=== PATIENT | male | born 1985 | race Caucasian/White ===

== ENCOUNTER 2021-09-02 23:14 | Emergency (ER) | payer BC, SELFPAY ==
--- NOTE | 2021-09-02 23:15 | ECG_ITS ---
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 Measurements Intervals [place] Rate: 51 P: 53 NM: 144 QRS: 53 QRSD: 98 T: 34 QT: 405 QTc: 376 Interpretive Statements SINUS BRADYCARDIA No previous ECG available for comparison Electronically Signed On 09-03-2021 22:00:12 SANDFILL OPERATOR by Lor Ruelas M.D. [id number]
--- NOTE | 2021-09-02 23:15 | XRR_ITS ---
PROCEDURE INFORMATION: Exam: XR Chest Exam date and time: 09/02/2021 11:15 PM Age: 36 years old Clinical indication: Pain; Left-sided; Additional info: Cp TECHNIQUE: Imaging protocol: XR of the chest. Views: 1 view. COMPARISON: CT Chest/Abdomen/Pelvis w IV* 06/11/2021 11:00 PM FINDINGS: Lungs: Unremarkable. No consolidation. Pleural spaces: Unremarkable. No pleural effusion. No pneumothorax. Heart/Mediastinum: Unremarkable. No cardiomegaly. Bones/joints: Unremarkable. XR/XR chest 1V portable [id number] IMPRESSION: No acute findings. Radiation Dose CTDIVOL = (mGy): DLP = (mGy-cm)
[2021-09-02 23:26] VITALS: BP 160/105; PULSE 57; RESP 16; TEMP 36.2; O2SAT 99
[2021-09-02 23:52] LABS: Basophils % 0.4 %; Eosinophils # 0.2 10^3/uL (0.0-0.8); Eosinophils % 2.7 %; Hematocrit 42.6 % (42.0-52.0); Hemoglobin 15.2 g/dL (11.7-16.6); Lymphocytes # 2.2 10^3/uL (0.8-4.8); Lymphocytes % 29.3 %; Mean Corpuscular HGB Conc 35.7 g/dL (30.0-36.0); Mean Corpuscular Hemoglobin 30.6 pg (28.0-34.0); Mean Corpuscular Volume 85.7 fl (80-94); Mean Platelet Volume 9.8 fL (7.4-10.4); Monocytes # 0.4 10^3/uL (0.2-0.9); Monocytes % 5.7 %; Neutrophils # 4.57 10^3/uL (1.8-7.7); Neutrophils % 61.6 %; Nucleated Red Blood Cells % 0 %; Platelet Count 293 10^3/cmm (130-400); Red Blood Count 4.97 10^6/uL (4.1-5.3); Red Cell Distribution Width 12.4 % (12.1-15.1); White Blood Count 7.4 10^3/uL (4.0-10.0)
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
[2021-09-03 00:12] LABS: Albumin Level 4.3 g/dL (3.5-5.2); Alkaline Phosphatase 64 IU/L (40-130); Blood Urea Nitrogen 16 mg/dL (6-20); Calcium 8.9 mg/dL (8.5-10.5); Carbon Dioxide 22 mmol/L (22-29); Chloride 103 mmol/L (98-107); Creatinine Clr Calc Pharmacy 144.6126; Globulin 2.2 g/dL (1.3-4.6); Glomerular Filtration Rate 95.5 mL/min (90-130); Glucose 104 mg/dL (65-115); Osmolality Calculated 287 mOsm/kg (285-295); Sodium 138 mmol/L (136-145); Total Bilirubin 0.2 mg/dL (0.15-1.2); Total Protein 6.5 g/dL (6.6-8.7)
[2021-09-03 00:14] LABS: Troponin(5th) Baseline 9 ng/L (0-15)
[2021-09-03 00:15] LABS: Anion Gap 16.9 (5-19); Potassium 3.9 mmol/L (3.5-5.1)
[2021-09-03 00:22] LABS: D Dimer 0.35 ug/mIFEU (0-0.59)
[2021-09-03 00:23] LABS: Alanine Aminotransferase < 5 U/L (0-41); Aspartate Amino Transferase 5 U/L (0-40)
[2021-09-03] MEDS: LORazepam 1 mg Tablet PO (01:10)
[2021-09-03 01:15] VITALS: BP 148/86; PULSE 48; RESP 18; O2SAT 99
--- NOTE | 2021-09-05 13:29 | DCPLANNER ---
order manager had message to schedule a follow up appointment for patient with [facility]. order manager called the [facility], spoke with Padmini, gave clinic patients information. A follow up appointment was scheduled for Monday, September 20, 2021 at 1:[address] Corrales. order manager called patient and gave patient the appointment information.
--- NOTE | 2021-10-07 11:05 | DCPLANNER ---
Patient had a follow up appointment scheduled for 09.20.21 with heart care - patient did attend appointment.
== END 2021-09-03 01:17 | disposition home or self-care (01) ==
PROVIDERS: Emergency Medicine; Emergency Provider Nurse Practitioner Family
DX: R07.89 Other chest pain (principal)
CPT/HCPCS: 71045; 80053; 84484; 85025; 85378; 93005; 99283

== ENCOUNTER 2021-09-13 19:32 | Emergency (ER) | payer BC, SELFPAY ==
[2021-09-13 19:40] VITALS: BP 154/94; PULSE 68; RESP 18; TEMP 36.6; O2SAT 97; BMI 33.9
--- NOTE | 2021-09-13 19:48 | ECG_ITS ---
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 Measurements Intervals [place] Rate: 54 P: 41 MT: 162 QRS: 42 QRSD: 98 T: 34 QT: 411 QTc: 391 Interpretive Statements SINUS BRADYCARDIA WITH SINUS ARRHYTHMIA Compared to ECG 09/02/2021 23:25:42 No significant changes Electronically Signed On 09-14-2021 9:59:12 HAND STEMMER by Christi Carver M.D. [id number]
--- NOTE | 2021-09-13 19:48 | XRR_ITS ---
PROCEDURE INFORMATION: Exam: XR Chest Exam date and time: 09/13/2021 7:48 PM Age: 36 years old Clinical indication: Pain; Left-sided; Additional info: Cp TECHNIQUE: Imaging protocol: XR of the chest. Views: 1 view. COMPARISON: CR (CHEST, ) 09/02/2021 11:48 PM FINDINGS: Lungs: Lungs are clear bilaterally. Stable calcified granuloma in the the left lower lobe. Pleural spaces: No pleural effusion. No pneumothorax. Heart/Mediastinum: Stable mild enlargement of the cardiac silhouette. Mediastinal contours are unremarkable. Bones/joints: Stable changes consistent with a previous right rotator cuff repair. Stable degenerative changes in the spine. XR/XR chest 1V portable [id number] IMPRESSION: 1. No acute cardiopulmonary process. 2. Stable calcified granuloma in the the left lower lobe. 3. Incidental/nonacute findings are listed in the report. Radiation Dose CTDIVOL = (mGy): DLP = (mGy-cm)
[2021-09-13 20:10] LABS: Basophils % 0.6 %; Eosinophils # 0.2 10^3/uL (0.0-0.8); Eosinophils % 2.2 %; Hemoglobin 14.7 g/dL (11.7-16.6); Lymphocytes # 2.2 10^3/uL (0.8-4.8); Lymphocytes % 32.8 %; Mean Corpuscular HGB Conc 34.2 g/dL (30.0-36.0); Mean Corpuscular Hemoglobin 29.8 pg (28.0-34.0); Mean Corpuscular Volume 87.2 fl (80-94); Mean Platelet Volume 10.2 fL (7.4-10.4); Monocytes # 0.4 10^3/uL (0.2-0.9); Monocytes % 5.2 %; Neutrophils # 3.94 10^3/uL (1.8-7.7); Neutrophils % 59.1 %; Nucleated Red Blood Cells % 0 %; Platelet Count 282 10^3/cmm (130-400); Red Blood Count 4.93 10^6/uL (4.1-5.3); Red Cell Distribution Width 12.7 % (12.1-15.1); White Blood Count 6.7 10^3/uL (4.0-10.0)
[2021-09-13 20:37] LABS: Alanine Aminotransferase 26 U/L (0-41); Albumin Level 4.5 g/dL (3.5-5.2); Alkaline Phosphatase 64 IU/L (40-130); Aspartate Amino Transferase 23 U/L (0-40); Blood Urea Nitrogen 13 mg/dL (6-20); Calcium 8.7 mg/dL (8.5-10.5); Carbon Dioxide 27 mmol/L (22-29); Chloride 104 mmol/L (98-107); Globulin 1.9 g/dL (1.3-4.6); Glomerular Filtration Rate 109.4 mL/min (90-130); Glucose 90 mg/dL (65-115); Lipase 32 U/L (13-60); Osmolality Calculated 290 mOsm/kg (285-295); Sodium 140 mmol/L (136-145); Total Bilirubin 0.2 mg/dL (0.15-1.2); Total Protein 6.4 g/dL (6.6-8.7)
[2021-09-13 20:38] LABS: Troponin(5th) Baseline 10 ng/L (0-15)
--- NOTE | 2021-09-13 21:33 | W.ED.GENADLT ---
HPI - General Adult General: Chief complaint: Chest Pain Stated complaint: Chest Pains Time Seen by Provider: 09/13/21 20:16 History of Present Illness: HPI narrative: CC: Chest Pain HPI: This is a [36] yo patient hx of family hx of cardiac issue presenting to the ED complaining of acute sudden onset intermittent sharp chest pain since 09/02 WITHOUT radiation to the back or shoulders. Patient tells me that the pain has now worsened to the point where he has sharp stabbing pain with breath. Patient has a recent URI 3 weeks ago. No associated with shortness of breath, chest pain or dyspnea on exertion. Pain is not tearing in nature and does not radiate to the back. Pain not associated with vomiting or PO intake. Denies any recent sympathomimetic drug use. Patient denies any cough. Denies palpitations, dysphagia, diaphoresis, radiation of pain to bilateral arms, jaw. Denies F/N/V/D. Patient denies any recent immobility, surgery, unilateral leg swelling, or prior PE. Patient denies any orthopnea. No family history of Marfan syndrome, or Shirlene-Danlos syndrome, or any type of aortic pathologies. Onset: 11 days ago Duration: ongoing for the last 11 days Location: home Severity: mild/moderate Review of Systems Narrative: Constitutional: No fever, no chills. HEENT: No vision changes, no sore throat. CV: +chest pain, no palpitations. PULM: No cough, No dyspnea. GI: No abdominal pain, no N/V/D. : No dysuria, no frequency, no hematuria. MSKEL: No arthralgias, no edema. SKIN: No new rashes, no lesions. NEURO: No headache, no focal weakness. HEME: No easy bleeding or bruising. PSYCH: No change in mood or affect. Physical Exam Narrative: EXAM NARRATIVE: Head: Atraumatic, normocephalic Eyes: PERRL, EOMI, conjunctiva without injection ENT: Throat without erythema, lesions or exudate, MMM NECK: Supple, trachea midline, no JVD LUNGS: LCTA CV: RRR, S1,S2, no murmurs, rubs, gallops. 2+ peripheral pulses in UEs ABDOMEN: Soft, nontender, nondistended, BS x4, no rigidity, no guarding, no rebound EXTREMITY: Normal ROM, no pitting edema, no calf tenderness to palpation SKIN: No rash or erythema NEURO: Awake and alert. No focal motor deficits. PSYCH: Normal mood and affect. Course Vital Signs: Vital signs: Vital Signs Temperature 97.8 F 09/13/21 19:40 Pulse Rate 68 09/13/21 19:40 Respiratory Rate 18 09/13/21 19:40 Blood Pressure 154/94 09/13/21 19:40 Pulse Oximetry 97 09/13/21 19:40 MDM - General Adult MDM Narrative: Medical decision making narrative: [36]yo patient w/ hx of family hx of cardiac issues presenting to the ED with evaluation of sharp chest pain x 11 days now worsening. HDS, pulse 2+ radially bilaterally, no signs of fluid overload, AAOx3, neuro exam intact. Given History and Exam today I have no suspicion for ACS, Pneumothorax, Pneumonia, Pulmonary Embolus, Tamponade, Aortic Dissection or other emergent problems as a cause for this presentation. Workup: ECG, CXR, CBC, BMP, Troponin x 2 Interventions: Toradol, tylenol Findings: ECG: No overt evidence of STEMI, hyperacute T waves, localizable STD or T wave inversions. No evidence of Brugada?s sign, delta wave, epsilon wave, significantly prolonged QTc, or malignant arrhythmia. No Q waves. Other Labs unremarkable for emergent problems. CXR: Without PTX, PNA, or widened mediastinum Last Stress Test: never Last Heart Catheterization: never HEART Score: 1 Dimer wnl [10:20pm] On reassessment, the patient is HDS, no complaints of persistent chest pain in the ED after evaluation. ECG is non-ischemic. Workup today is unremarkable. Doubt ACS/PE or other emergent causes of chest pain. Social did not show any signs of any acute right heart strain, or for dissection flap. No signs of pericardial effusion. Patient has an appointment with Cardiology next week and plans to follow up appropriately. Doubt ACS/PE or other emergent causes of chest pain. No suspicion for aortic dissection given no widened mediastinum, 2+ upper extremity pulses, or tearing pain. No suspicion for PE given no pleuritic chest pain, recent immobilization or surgery hemoptysis, or other VTE risk factors. EKG is non-ischemic. XR normal. Rx: Tylenol 500mg Q6Hrs x 4 days PRN pain Disposition: Discharge. Strict return precautions discussed with the patient with full understanding. Advised patient to follow up promptly with a primary care provider in 24-48 hrs if the patient has persistent symptoms. Given return instructions for any crushing/tearing chest pain, focal weakness, syncope or any new or concerning issues. Lab Data: Labs: Lab Results 09/13/21 09/13/21 09/13/21 20:03 20:03 20:03 WBC 6.7 10^3/uL 10^3/ uL (4.0-10.0) RBC 4.93 10^6/uL 10^6 /uL (4.1-5.3) Hgb 14.7 g/dL g/dL (11.7-16.6) Hct 43.0 % % (42.0-52.0) MCV 87.2 fl fl (80-94) MCH 29.8 pg pg (28.0-34.0) MCHC 34.2 g/dL g/dL (30.0-36.0) RDW 12.7 % % (12.1-15.1) Plt Count 282 10^3/cmm 10^3 /cmm (130-400) MPV 10.2 fL fL (7.4-10.4) Neut % (Auto) 59.1 % % Lymph % (Auto) 32.8 % % [place] % (Auto) 5.2 % % Eos % (Auto) 2.2 % % Baso % (Auto) 0.6 % % Neut # (Auto) 3.94 10^3/uL 10^3 /uL (1.8-7.7) Lymph # (Auto) 2.2 10^3/uL 10^3/ uL (0.8-4.8) [place] # (Auto) 0.4 10^3/uL 10^3/ uL (0.2-0.9) Eos # (Auto) 0.2 10^3/uL 10^3/ uL (0.0-0.8) Baso # (Auto) 0.0 10^3/uL 10^3/ uL (0.0-0.1) Nucleated RBC % (a uto) 0 % % Nucleated RBCs # 0.0 /100WBC /100W BC D-Dimer Sodium 140 mmol/L mmol/L (136-145) Potassium 4.0 mmol/L mmol/L (3.5-5.1) Chloride 104 mmol/L mmol/L (98-107) Carbon Dioxide 27 mmol/L mmol/L (22-29) Anion Gap 13.0 (5-19) BUN 13 mg/dL mg/dL (6-20) Creatinine 0.8 mg/dL mg/dL (0.7-1.2) GFR Calculation 109.4 mL/min mL/m in (90-130) Glucose 90 mg/dL mg/dL (65-115) Calculated Osmolal ity 290 mOsm/kg mOsm/ kg (285-295) Calcium 8.7 mg/dL mg/dL (8.5-10.5) Total Bilirubin 0.2 mg/dL mg/dL (0.15-1.2) AST 23 U/L U/L (0-40) ALT 26 U/L U/L (0-41) Alkaline Phosphata se 64 IU/L IU/L (40-130) Troponin T Baselin e 10 ng/L ng/L (0-15) Troponin T 120 Min ch[place]kat Delta Troponin T Total Protein 6.4 g/dL L g/dL (6.6-8.7) Albumin 4.5 g/dL g/dL (3.5-5.2) Globulin 1.9 g/dL g/dL (1.3-4.6) Lipase 32 U/L U/L (13-60) 09/13/21 09/13/21 22:00 22:08 WBC RBC Hgb Hct MCV MCH MCHC RDW Plt Count MPV Neut % (Auto) Lymph % (Auto) [place] % (Auto) Eos % (Auto) Baso % (Auto) Neut # (Auto) Lymph # (Auto) [place] # (Auto) Eos # (Auto) Baso # (Auto) Nucleated RBC % (a uto) Nucleated RBCs # D-Dimer <= 0.27 ug/mIFEU ug/mIFEU (0-0.59) Sodium Potassium Chloride Carbon Dioxide Anion Gap BUN Creatinine GFR Calculation Glucose Calculated Osmolal ity Calcium Total Bilirubin AST ALT Alkaline Phosphata se Troponin T Baselin e Troponin T 120 Min [place] 9.14 ng/L ng/L (0-15) Delta Troponin T -0.86 ABS# L ABS# (0-10) Total Protein Albumin Globulin Lipase Imaging Data^: Other Imaging: Radiologist's impression: [facility] [place], [place] [address]HLme ReportSigned Patient: Jerry Griffin #: [id number]: 1985Acct#:[id number]/Sex: 36 / MADM Date: 09/13/21Loc: ERRoom/Bed:Attending Dr: Ordering Provider/Ordering MD: Rell Smith MD Date of Service: 09/13/21 Procedure(s): XR chest 1V portable [id number] Accession Number(s): [id number] Report Number: [id number] PROCEDURE INFORMATION: Exam: XR Chest Exam date and time: 09/13/2021 7:48 PM Age: 36 years old Clinical indication: Pain; Left-sided; Additional info: Cp TECHNIQUE: Imaging protocol: XR of the chest. Views: 1 view. COMPARISON: CR (CHEST, ) 09/02/2021 11:48 PM FINDINGS: Lungs: Lungs are clear bilaterally. Stable calcified granuloma in the the left lower lobe. Pleural spaces: No pleural effusion. No pneumothorax. Heart/Mediastinum: Stable mild enlargement of the cardiac silhouette. Mediastinal contours are unremarkable. Bones/joints: Stable changes consistent with a previous right rotator cuff repair. Stable degenerative changes in the spine. XR/XR chest 1V portable [id number] IMPRESSION: 1. No acute cardiopulmonary process. 2. Stable calcified granuloma in the the left lower lobe. 3. Incidental/nonacute findings are listed in the report. Radiation Dose CTDIVOL = (mGy): DLP = (mGy-cm) Dictated By:Mimi Alonso MDSigned By:Mimi Alonso MDSigned Date/Time:09/13/21D/ 47 Discharge Plan Discharge Patient Disposition: Home Clinical Impression: Chest pain Condition: Stable Prescriptions: New acetaminophen 500 mg tablet 500 mg PO Q6H PRN (Reason: pain) 5 Days Qty: 20 RF: 0 orphenadrine citrate 100 mg tablet extended release 100 mg PO BID PRN (Reason: pain) 10 Days Qty: 20 RF: 0 Biofreeze (menthol) 5 % gel 1 ea topical BID PRN (Reason: pain) 10 Days Qty: 1 RF: 0 No Action lorazepam 0.5 mg tablet 0.5 mg PO DAILY PRN (Reason: anxiety) Qty: 7 RF: 0 Discharge Orders: Discharge ED (Routine); Ordered 09/13/21 Ordered By: Chaitanya Dennis Discharge Diet: Advance as tolerated Discharge Activity: Resume usual activity Patient Instructions: Chest Pain (ED) Activity Restrictions/Additional Instructions: Come back to the emergency room if your chest pain worsens, have any fever or chills, worsening shortness of breath, worsening exertional lightheadedness, or any new or concerning complaints. Follow-up with our house mover helper next week for further evaluation chest pain as you have a family history of cardiac issues. Come back to the emergency room you have any new or concerning complaints. Coding Level of Care Code ED Environment Coordinator for Miriam Richard
[2021-09-13] MEDS: ketorolac 30 mg/mL INJ IVP (21:48)
[2021-09-13] MEDS: acetaminophen 500 mg Tablet 1000 MG PO (21:49)
[2021-09-13 22:28] LABS: D Dimer <= 0.27 ug/mIFEU (0-0.59)
[2021-09-13 22:44] LABS: Troponin 5 2HR 9.14 ng/L (0-15)
[2021-09-13 22:46] LABS: Troponin 5 2HR Delta -0.86 ABS# (0-10)
[2021-09-13 22:59] VITALS: BP 137/84; PULSE 58; RESP 16; O2SAT 98
== END 2021-09-13 23:00 | disposition home or self-care (01) ==
PROVIDERS: Emergency Medicine; Emergency Provider Emergency Medicine
DX: R07.9 Chest pain, unspecified (principal)
CPT/HCPCS: 71045; 80053; 83690; 84484; 85025; 85378; 93005; 96374; 99283; J1885

== ENCOUNTER 2021-09-23 07:29 | Outpatient (CLI) | payer BC, SELFPAY ==
--- NOTE | 2021-09-23 07:59 | USCV_ITS ---
Luis Daniel Griffin Age: 36 Gender: M : 1985 Exam Date: 09/23/2021 08:00 Ordering Phys: Lizandro Evans M.D ([email or web address]) Technologist: RANDELL [place] [facility] [place]: Chest pains x 2-3 weeks. No hx cardiac intervention. BP: / HR: 53 Rhythm: Sinus Technical Quality: Adequate MEASUREMENTS (Male / Female) Normal Values FINDINGS Left Ventricle Normal left ventricular size. LV systolic function is normal with EF of 55-60%. No regional wall motion abnormalities. Normal diastolic filling pattern. Right Ventricle The right ventricle is normal in size and function. Right Atrium The right atrium is normal in size. Left Atrium The left atrium is normal in size. Mitral Valve Structurally normal mitral valve without significant stenosis or prolapse. There is trace mitral regurgitation. Aortic Valve Thickened aortic valve without significant stenosis. There is no aortic regurgitation. Tricuspid Valve Structurally normal tricuspid valve without significant stenosis. Trace tricuspid regurgitation. Insufficient TR jet to calculate RVSP Pulmonic Valve Structurally normal pulmonic valve without significant stenosis. There is no pulmonic regurgitation. Pericardium Normal pericardium without effusion. Aorta Mildly dilated ascending aorta CONCLUSIONS Normal LV systolic function with EF of 55 to 60%. Normal diastolic function. Trace mitral regurgitation. Thickened aortic valve. Trace tricuspid regurgitation. Mildly dilated ascending aorta. No comparison studies are available. Lizandro Evans MD (Electronically Signed) Final Date: 26 September 2021 14:42 S
--- NOTE | 2021-09-23 08:00 | ECG_ITS ---
[facility] Test Date: 2021-09-23 Pat Name: Luis Daniel Griffin Department: Room: Gender: Male Senior Pricing Analyst: Emelia Mix : 1985 Requested By: Lizandro Evans Order Number: [id number] Des MD: Lizandro Evans M.D. Interpretive Statements NAME OF STUDY: EXERCISE SESTAMIBI STRESS TEST INDICATION: [Chest Pain, ] EXERCISE DATA: The patient was exercised by Ez protocol. Baseline heart rate was 59 beats per minute. Baseline blood pressure was 130/78 millimeters of mercury. Target heart rate was 156 beats per minute. Maximum heart rate achieved was 161, which was 103% of the target heart rate. Maximum blood pressure was 158/78 millimeters of mercury. Total exercise time was 10 minutes 13 seconds. Maximum METs achieved was 13.5, maximum VO2 was 47.3. The reason for ending the test was completion of protocol. The patient complained of shortness of breath during the stress test, which then resolved at the end of the test. ELECTROCARDIOGRAM: BASELINE: Showed sinus rhythm, normal axis, no significant ST-T changes at the baseline noted. [] EXERCISE: At the peak exercise level, [] nonspecific ST-T wave changes. Occasional PVCs [] RECOVERY: During the recovery period, heart rate dropped appropriately. No significant ST-T changes in the recovery suggestive of ischemia noted. [] CONCLUSION: 1. Exercise capacity excellent. 2. Heart rate response was appropriate 3. Blood pressure response was appropriate 4. Symptoms not suggestive of ischemia. 5. Electrocardiogram portion of the stress test was not suggestive of ischemia. 6. Nuclear scan will be documented separately. Electronically Signed On 10-08-2021 13:03:40 MANAGER BRIDGE by Lizandro Evans M.D. [id number]
--- NOTE | 2021-09-23 08:00 | NMCV_ITS ---
NM janelle perf SPECT r/s* [id number] Luis Daniel Grfifin Age: 36 Gender: M : 1985 Exam Date: 09/23/2021 08:42 Ordering Phys: Lizandro Evans M.D ([email or web address]) Technologist: ZEYNEP Braden Exam Location: [facility] Indications: CHEST PAIN STRESS TEST Please see separate stress test report in [facility] for full findings IMAGE PROTOCOL Rest/Stress 1 Exercise Day Radiopharmaceutical Dose (mCi) Administration Site Administered by Rest: Tc-99m 10.6 IV ZEYNEP Marino Sestamibi Stress:Tc-99m 32.5 IV ZEYNEP Marino Sestaminika Rest: 23-Sep-2021 60 Discovery 630 Stress: 23-Sep-2021 15 Discovery 630 Radiopharmaceutical was injected at 86 % maximum heart rate. Images obtained in supine and prone position. SPECT RESULTS Technical Quality: Excellent Raw Data Analysis: Normal Image Corrections: No attenuation or motion correction applied Summed Stress Score: 0 Summed Rest Score: 0 Summed Difference Score: 0 PERFUSION FINDINGS There is homogenous radiotracer uptake throughout the myocardium. No evidence of ischemia FUNCTIONAL RESULTS (calculated via Gated SPECT) Stress Image LV EF (%): 64 Stress EDV (mL):151 TID: 0.76 Stress ESV (mL):54 FUNCTIONAL FINDINGS: There is normal left ventricular systolic function. IMPRESSIONS 1. Normal myocardial perfusion imaging with no evidence of ischemia 2. LV systolic function is normal Lizandro Evans MD (Electronically Signed) Final Date: 23 September 2021 15:49 S
[2021-09-23 08:29] VITALS: BMI 31.8
[2021-09-23 09:40] VITALS: BP 134/87; PULSE 89
== END 2021-09-23 07:30 | disposition home or self-care (01) ==
LOC: RAD 07:30 → CDL 07:57
PROVIDERS: Visit Provider Internal Medicine
DX: R07.9 Chest pain, unspecified (principal); R06.02 Shortness of breath; I08.3 Combined rheumatic disorders of mitral, aortic and tricuspid valves
CPT/HCPCS: 78452; 93017; 93306; A9500

== ENCOUNTER 2021-11-02 12:00 | Outpatient (CLI) | payer BC, SELFPAY | END 2021-11-02 12:01 | disposition home or self-care (01) | LOC: SLEEP 11-03 12:35 | PROVIDERS: Visit Provider Physician Assistant | DX: G47.10 Hypersomnia, unspecified (principal) | CPT/HCPCS: G0399 ==

== ENCOUNTER 2023-08-26 19:15 | Emergency (ER) | payer BC, SELFPAY ==
[2023-08-26 19:18] VITALS: BP 160/116; PULSE 58; RESP 17; TEMP 36.6; O2SAT 99; BMI 33.9
[2023-08-26 19:35] LABS: Basophils % 0.6 %; Eosinophils # 0.4 10^3/uL (0.0-0.8); Eosinophils % 5.9 %; Hematocrit 47.5 % (37-53); Lymphocytes # 2.3 10^3/uL (0.8-4.8); Lymphocytes % 32.2 %; Mean Corpuscular HGB Conc 34.5 g/dL (30-55); Mean Corpuscular Hemoglobin 30.4 pg (27-33); Mean Platelet Volume 9.9 fL (7.4-10.4); Monocytes # 0.3 10^3/uL (0.2-0.9); Monocytes % 4.7 %; Neutrophils # 4.08 10^3/uL (1.8-7.7); Neutrophils % 56.3 %; Nucleated Red Blood Cells % 0 %; Platelet Count 290 10^3/cmm (157-399); Red Cell Distribution Width 12.3 % (12.1-15.1); White Blood Count 7.24 10^3/uL (3.29-11.43)
--- NOTE | 2023-08-26 19:42 | W.ED.ABDPA2 ---
HPI - Abdominal Pain General: Chief Complaint: Abdominal Pain Stated Complaint: abdomen pain,n/v Time Seen by Provider: 08/26/23 19:17 Source: patient and family Mode of arrival: ambulatory Limitations: no limitations History of Present Illness: Patient is a nice 38-year-old male who presents to ED today with complaint of nausea and vomiting as well as what he describes as stomach uneasiness . Denies actual pain or cramping although significant other states he has a high pain tolerance and wouldn't admit to this. He states symptoms have been present for approximately 2 days. He states he has not been able to hold down anything as he will vomit approximately 15 to 30 minutes after eating. He has had an occasional loose stool but no diffuse diarrhea. No fevers. He has tried treatment with OTC nausea meds and Tums without relief. Used to take Famotidine but stopped this a while back. Denies NSAID/etoh use. MD elicited complaint: other (N/V) Pertinent past history: none Onset (ago): day(s) Pain Consistency: intermittent Location: Epigastric and Periumbilical Severity: mild Radiation: none Migration to: no migration Exacerbating factors: eating Relieving factors: vomiting Associated Symptoms: Reports diarrhea, nausea and vomiting; Denies chills, dysuria, fever(s), hematochezia, hematemesis and melena Review of Systems Const: Denies: fever(s), chills, body aches, fatigue or malaise Card: Denies: chest pain Resp: Denies: dyspnea GI: Reports: abdominal pain, nausea, vomiting and diarrhea; Denies: hematemesis, hematochezia or melena : Denies: flank pain, difficulty urinating, dysuria, urinary frequency, urinary urgency or urinary hesitancy Musc: Denies: neck pain, back pain, extremity pain or joint pain Skin/Breast: Denies: rash Neuro: Denies: headache(s), numbness in extremities, weakness in extremities, sensory changes or dizziness PFS ED PFSH: Family History Father Heart attack History of open heart surgery Social History Smoking and tobacco/nicotine status: never used tobacco/nicotine Alcohol intake: never Substance/Drug Use: never Physical Exam Const: COMMON NORMALS: no acute distress, average body habitus, patient oriented x3, no limitations, healthy appearing, alert and well nourished Eye: COMMON NORMALS: no scleral icterus Resp: COMMON NORMALS: normal respiratory effort and clear to auscultation bilaterally AUSCULTATION: clear to auscultation bilaterally Cardio: COMMON NORMALS: regular rate and regular rhythm RATE: regular rate RHYTHM: regular rhythm GI: COMMON NORMALS: Normal to inspection, nondistended, normoactive bowel sounds present, Soft to palpation, No hepatosplenomegaly present and no masses INSPECTION: Yes normal to inspection AUSCULTATION: Yes normoactive bowel sounds PALPATION: Yes Soft to palpation, Yes Tenderness to palpation present (GI) (generally; does not appear uncomfortable with palpation), No Guarding due to palpation present (GI), No Rigid due to palpation and Yes No hepatosplenomegaly present : COMMON NORMALS: Yes no CVA tenderness BLADDER/KIDNEY EXAM: Yes no CVA tenderness Back/Pelvis: COMMON NORMALS: no CVA tenderness, thoracic and lumbar spine normal to inspection, no thoracic nor lumbar tenderness and thoraco-lumbar ROM normal Extremity: COMMON NORMALS: normal to inspection GENERAL: Yes normal exam except as noted Neuro: NICOLLE COMA SCALE: document GCS findings Nicolle coma scale eye opening: Spontaneous [place] coma scale verbal response: Orientated [place] coma scale motor response: Obey commands Nicolle coma scale total score: 15 COMMON NORMALS: patient oriented x3, moves all extremities, no focal motor deficits and no sensory deficits noted SENSORIUM/ORIENTATION: Yes alert Skin: COMMON NORMALS: no rashes or lesions noted GENERAL SKIN EXAM: no rashes or lesions noted Course Vital Signs: Vital signs: Vital Signs Temperature 97.9 F 08/26/23 19:18 Pulse Rate 90 08/26/23 20:29 Respiratory Rate 18 08/26/23 20:29 Blood Pressure 122/73 08/26/23 20:29 Pulse Oximetry 98 08/26/23 20:29 Oxygen Delivery Me thod Room Air 08/26/23 20:19 MDM - Abdominal Pain Medical Decision Making Patient appears in no acute distress. Vital signs are stable. Blood work overall is unremarkable. He was given IV fluids, Zofran, and a GI cocktail and feels better. He was able to eat/drink here and has not had vomiting. At initial examination I had discussed not obtaining CT imaging as exam/history did not sound emergent/surgical in nature but patient/significant other requesting this. This was completed and essentially normal apart from a few incidental findings. I will give him nausea meds and place him on a PPI and have him follow up with his primary care provider. Return to ED precautions given. Lab Data 08/26/23 19:28 08/26/23 19:28 Labs/Radiology: Radiology Impressions Abdomen/Pelvis CT 08/26/23 19:59 IMPRESSION: 1. No acute findings. 2. A 6 mm fat containing umbilical hernia, which does not contain any bowel wall. 3. Mild sigmoid colon diverticulosis without diverticulitis. COMMENTS: Consistent with the [place] [employer]'s Incidental Findings Committee white paper (J Am Prabha Radiol 2018): Any incidental renal lesion less than 1 cm or classified as too small to characterize, or any incidental cystic renal lesion characterized as simple-appearing, is likely benign. No follow-up imaging is recommended for these lesions per consensus recommendations based on imaging criteria. Laboratory Results WBC 7.24 10^3/uL (3.29-11.43) 08/26/23 19:28 RBC 5.40 10^6/uL (3.85-5.65) 08/26/23 19:28 Hgb 16.40 g/dL (11.27-16.99) 08/26/23 19:28 Hct 47.5 % (37-53) 08/26/23 19:28 MCV 88.0 fl (82-101) 08/26/23 19:28 MCH 30.4 pg (27-33) 08/26/23 19:28 MCHC 34.5 g/dL (30-55) 08/26/23 19:28 RDW 12.3 % (12.1-15.1) 08/26/23 19:28 Plt Count 290 10^3/cmm (157-399) 08/26/23 19:28 MPV 9.9 fL (7.4-10.4) 08/26/23 19:28 Neut % (Auto) 56.3 % 08/26/23 19:28 Lymph % (Auto) 32.2 % 08/26/23 19:28 Johnson % (Auto) 4.7 % 08/26/23 19:28 Eos % (Auto) 5.9 % 08/26/23 19:28 Baso % (Auto) 0.6 % 08/26/23 19:28 Neut # (Auto) 4.08 10^3/uL (1.8-7.7) 08/26/23 19:28 Lymph # (Auto) 2.3 10^3/uL (0.8-4.8) 08/26/23 19:28 Johnson # (Auto) 0.3 10^3/uL (0.2-0.9) 08/26/23 19:28 Eos # (Auto) 0.4 10^3/uL (0.0-0.8) 08/26/23 19:28 Baso # (Auto) 0.0 10^3/uL (0.0-0.1) 08/26/23 19:28 Nucleated RBC % (auto) 0 % 08/26/23 19:28 Nucleated RBCs # 0.0 /100WBC 08/26/23 19:28 Sodium 140 mmol/L (136-145) 08/26/23 19:28 Potassium 3.6 mmol/L (3.5-5.1) 08/26/23 19:28 Chloride 103 mmol/L (98-107) 08/26/23 19:28 Carbon Dioxide 28 mmol/L (22-29) 08/26/23 19:28 Anion Gap 12.6 (5-19) 08/26/23 19:28 BUN 12 mg/dL (6-20) 08/26/23 19:28 Creatinine 1.1 mg/dL (0.7-1.2) 08/26/23 19:28 GFR Calculation 74.9 mL/min (90-130) L 08/26/23 19:28 Glucose 93 mg/dL (65-115) 08/26/23 19:28 Calculated Osmolality 289 mOsm/kg (285-295) 08/26/23 19:28 Calcium 8.9 mg/dL (8.5-10.5) 08/26/23 19:28 Total Bilirubin 0.7 mg/dL (0.15-1.2) 08/26/23 19:28 AST 36 U/L (0-40) 08/26/23 19:28 ALT 33 U/L (0-41) 08/26/23 19:28 Alkaline Phosphatase 59 U/L (40-130) 08/26/23 19:28 Total Protein 6.9 g/dL (6.6-8.7) 08/26/23 19:28 Albumin 4.5 g/dL (3.5-5.2) 08/26/23 19:28 Globulin 2.4 g/dL (1.3-4.6) 08/26/23 19:28 Lipase 39 U/L (13-60) 08/26/23 19:28 Urine Color Rox (Yellow) 08/26/23 19:42 Urine Appearance Clear (CLEAR) 08/26/23 19:42 Urine pH 5 (5-7) 08/26/23 19:42 Ur Specific [place] 1.025 (1.005-1.030) 08/26/23 19:42 Urine Protein Trace (Negative) 08/26/23 19:42 Urine Glucose (UA) Norm (Normal) 08/26/23 19:42 Urine Ketones 2+ (Negative) H 08/26/23 19:42 Urine Blood Trace (Negative) H 08/26/23 19:42 Urine Nitrate Negative (Negative) 08/26/23 19:42 Urine Bilirubin 1+ (Negative) H 08/26/23 19:42 Urine Urobilinogen 1 mg/dL (Negative) H 08/26/23 19:42 Ur Leukocyte Esterase Negative (Negative) 08/26/23 19:42 Urine RBC 0-4 /hpf (0-2) H 08/26/23 19:42 Urine WBC Rare /hpf (0-5) 08/26/23 19:42 Ur Squamous Epith Cells 0-4 /hpf (0-5) H 08/26/23 19:42 Amorphous Sediment 1+ /hpf 08/26/23 19:42 Urine Bacteria None /hpf (NONE) 08/26/23 19:42 Urine Mucus 3+ /hpf 08/26/23 19:42 All radiology interpretation(s) finalized by discharge Discharge Plan Discharge Patient Disposition: Home Clinical Impression: Nausea and vomiting Qualifiers: Vomiting type: unspecified Qualified Code(s): R11.2 - Nausea with vomiting, unspecified Condition: Stable Prescriptions: New ondansetron 4 mg tablet,disintegrating 4 mg PO Q8H PRN (Reason: nausea and vomiting) Qty: 14 0RF Protonix 40 mg tablet,delayed release (DR/EC) 40 mg PO DAILY 28 Days Qty: 28 0RF No Action lorazepam 0.5 mg tablet 0.5 mg PO DAILY PRN (Reason: anxiety) Qty: 7 0RF Discharge Orders: Discharge ED (Routine); Ordered 08/26/23 Ordered By: Camilla Barba Referrals: Zohreh Gustafson PA [Primary Care Provider] - Activity Restrictions/Additional Instructions: As we discussed your vitals and labs are all reassuring. CT scan is essentially normal. As we discussed I will trial you on medication and want you to follow up with your primary care provider if symptoms persist. Coding Level of Care Code ED Home Lending Officer for Miriam Richard
[2023-08-26 19:47] VITALS: BP 145/106; PULSE 53; RESP 18; O2SAT 97
[2023-08-26 19:49] LABS: Alanine Aminotransferase 33 U/L (0-41); Albumin Level 4.5 g/dL (3.5-5.2); Alkaline Phosphatase 59 U/L (40-130); Anion Gap 12.6 (5-19); Aspartate Amino Transferase 36 U/L (0-40); Blood Urea Nitrogen 12 mg/dL (6-20); Calcium 8.9 mg/dL (8.5-10.5); Carbon Dioxide 28 mmol/L (22-29); Chloride 103 mmol/L (98-107); Globulin 2.4 g/dL (1.3-4.6); Glomerular Filtration Rate 74.9 mL/min (90-130); Glucose 93 mg/dL (65-115); Lipase 39 U/L (13-60); Osmolality Calculated 289 mOsm/kg (285-295); Potassium 3.6 mmol/L (3.5-5.1); Sodium 140 mmol/L (136-145); Total Bilirubin 0.7 mg/dL (0.15-1.2); Total Protein 6.9 g/dL (6.6-8.7)
[2023-08-26 19:55] LABS: Add Urine Microscopic? YES; Bilirubin Urine 1+ (Negative); Blood Urine Trace (Negative); Glucose Urine UA Norm (Normal); Ketones Urine 2+ (Negative); Leukocyte Esterase Urine Negative (Negative); Nitrate Urine Negative (Negative); Protein Urine Trace (Negative); RBC Urine 0-4 /hpf (0-2); Specific Gravity, Urine 1.025 (1.005-1.030); Squamous Epithelial Cell Urine 0-4 /hpf (0-5); Urine Appearance Clear (CLEAR); Urine Color Amber (Yellow); Urobilinogen Urine 1 mg/dL (Negative); WBC Urine RARE /hpf (0-5); pH Urine 5 (5-7)
[2023-08-26 19:56] LABS: Add Urine Culture? No; Amorphous Sediment Urine 1+ /hpf; Mucus Urine 3+ /hpf
--- NOTE | 2023-08-26 19:59 | CTR_ITS ---
PROCEDURE INFORMATION: Exam: CT Abdomen And Pelvis With Contrast Exam date and time: 08/26/2023 8:10 PM Age: 38 years old Clinical indication: Nausea and vomiting; Abdominal pain; Generalized; Patient HX: Diffuse abd pain with n/v/d. ; Additional info: Ab pain, vomiting TECHNIQUE: Imaging protocol: Computed tomography of the abdomen and pelvis with contrast. Radiation optimization: All CT scans at this facility use at least one of these dose optimization techniques: automated exposure control; mA and/or kV adjustment per patient size (includes targeted exams where dose is matched to clinical indication); or iterative reconstruction. Contrast material: OMNI 350; Contrast volume: 100 ml; Contrast route: INTRAVENOUS (IV); REPORTING DATA: Count of CT and Cardiac NM exams in prior 12 months: This patient has received 0 known CTs and 0 known cardiac nuclear medicine studies in the 12 months prior to the current study. COMPARISON: CT chest abdpel w/*[id number] 06/11/2021 11:00 PM RADIATION DOSE METRICS: Total DLP (mGy-cm): 1013.23 FINDINGS: Liver: A 5 mm simple cyst in the right lobe of the liver. The liver is otherwise unremarkable. Gallbladder and bile ducts: Normal. No calcified stones. No ductal dilation. Pancreas: Normal. No ductal dilation. Spleen: Normal. No splenomegaly. Adrenal glands: Normal. No mass. Kidneys and ureters: A 5 mm cyst in the midportion of the left kidney is too small to characterize. No imaging follow-up is needed. The kidneys are otherwise unremarkable. Stomach and bowel: Mild sigmoid colon diverticulosis without diverticulitis. No bowel obstruction, ileus, or colitis. Appendix: No evidence of appendicitis. Intraperitoneal space: Unremarkable. No free air. No significant fluid collection. Vasculature: Unremarkable. No abdominal aortic aneurysm. Lymph nodes: Unremarkable. No enlarged lymph nodes. Urinary bladder: Unremarkable as visualized. Reproductive: Unremarkable as visualized. Bones/joints: Unremarkable. No acute fracture. Soft tissues: A 6 mm fat containing umbilical hernia, which does not contain any bowel wall. CT/CT abdomen pelvis w con* [id number] IMPRESSION: 1. No acute findings. 2. A 6 mm fat containing umbilical hernia, which does not contain any bowel wall. 3. Mild sigmoid colon diverticulosis without diverticulitis. COMMENTS: Consistent with the [place] [employer]'s Incidental Findings Committee white paper (J Am Prabha Radiol 2018): Any incidental renal lesion less than 1 cm or classified as too small to characterize, or any incidental cystic renal lesion characterized as simple-appearing, is likely benign. No follow-up imaging is recommended for these lesions per consensus recommendations based on imaging criteria.
[2023-08-26] MEDS: ondansetron 2 mg/ML SDV 2 mL 4 MG IVP (20:06)
[2023-08-26] MEDS: iohexol 350 mg/mL 500 mL Btl (per mL) IV (20:12)
[2023-08-26 20:19] VITALS: BP 145/106; PULSE 51; RESP 14; O2SAT 92
[2023-08-26] MEDS: sodium chloride 0.9% 1,000 ML 999 ML IV (20:27)
[2023-08-26 20:29] VITALS: BP 122/73; PULSE 90; RESP 18; O2SAT 98
[2023-08-26] MEDS: lidocaine 2% viscous 15 ML, aluminum-mag hydrox-simethicon 30 ML, sucralfate oral liq 1 GM PO (21:01)
[2023-08-26 21:53] VITALS: BP 136/79; PULSE 72; RESP 18; O2SAT 95
== END 2023-08-26 21:54 | disposition home or self-care (01) ==
PROVIDERS: Emergency Provider Physician Assistant; PCP Physician Assistant
DX: K57.30 Diverticulosis of large intestine without perforation or abscess without bleeding (principal)
CPT/HCPCS: 74177; 80053; 81001; 83690; 85025; 96361; 96374; 99285; J2405; J7030; Q9967

== ENCOUNTER 2023-10-23 09:28 | Emergency (ER) | payer BC, SELFPAY ==
[2023-10-23 09:47] VITALS: BP 125/83; PULSE 53; RESP 14; TEMP 36.8; O2SAT 99; BMI 31.1
[2023-10-23 09:47] LABS: Basophils % 0.5 %; Eosinophils # 0.3 10^3/uL (0.0-0.8); Eosinophils % 4.5 %; Hematocrit 43.3 % (37-53); Lymphocytes # 1.3 10^3/uL (0.8-4.8); Lymphocytes % 21.7 %; Mean Corpuscular HGB Conc 33.9 g/dL (30-55); Mean Corpuscular Volume 88.4 fl (82-101); Mean Platelet Volume 9.6 fL (7.4-10.4); Monocytes # 0.2 10^3/uL (0.2-0.9); Monocytes % 4.1 %; Neutrophils # 4.02 10^3/uL (1.8-7.7); Neutrophils % 68.9 %; Nucleated Red Blood Cells % 0 %; Platelet Count 281 10^3/cmm (157-399); Red Cell Distribution Width 12.4 % (12.1-15.1); White Blood Count 5.84 10^3/uL (3.29-11.43)
--- NOTE | 2023-10-23 10:04 | XR_ITS ---
WS: [id number] PORTABLE CHEST HISTORY: chest pain COMPARISON: 09/13/2021 Lungs are clear and well expanded. No pleural effusion or pneumothorax. Cardiac size: Normal. Mediastinum/Aorta: Normal mediastinum. No osseous abnormality seen. IMPRESSION: Unremarkable portable chest.
--- NOTE | 2023-10-23 10:04 | ED_ITS ---
HPI - Chest Pain 2 General: Chief Complaint: Abdominal Pain Stated Complaint: left upper abd pain Time Seen by Provider: 10/23/23 09:30 Source: patient Mode of arrival: ambulatory Limitations: no limitations History of Present Illness: Patient is a 38-year-old male presents to ED today with a complaint of left chest wall/rib pain that began earlier today when he was pulling a pipe and felt a pop . He states pain was significant initially following the injury but has since improved and on arrival to the ED he is rating it as very minimal. He has no complaints of abdominal pain. No shortness of breath or difficulty breathing. MD complaint: chest pain (rib pain) Onset (ago): hour(s) Timing of current episode: now resolved Prior episodes: No Onset: other (pulling injury) Pain location: other (L anterior rib) Pain radiation: none Severity: mild Relieving factors: rest Exacerbating factors: movement and other (pulling) Associated symptoms: Reports no associated symptoms; Deny abdominal pain, dyspnea, fever(s), nausea, palpitations, syncope or vomiting Treatment prior to arrival: none Risk Factors: Coronary artery disease risk factors: none Thoracic aortic dissection risk factors: none Review of Systems 2 Const: Denies: fever(s), chills, body aches, fatigue or malaise Card: Reports: chest pain (L anterior rib); Denies: palpitations, irregular heart rhythm, edema, swelling of feet/ankles, lightheadedness, syncope, pre-syncope, dyspnea on exertion, orthopnea, leg pain with exertion or acrocyanosis Resp: Denies: dyspnea, productive cough, non-productive cough, pain on inspiration or chest congestion GI: Denies: abdominal pain, nausea or vomiting : Denies: flank pain, dysuria or hematuria Musc: Denies: neck pain, back pain, extremity pain or joint pain PFSH ED 2 PFSH: Family History Father Heart attack History of open heart surgery Social History Smoking and tobacco/nicotine status: never used tobacco/nicotine Alcohol intake: never Substance/Drug Use: never Physical Exam 2 Const: COMMON NORMALS: no acute distress, average body habitus, patient oriented x3, no limitations, healthy appearing, alert and well nourished Neck/C-Spine: GENERAL: Yes normal visual inspection and Yes other (no subq crepitus) Chest: COMMONS NORMALS: normal inspection of the chest Chest images (male): 1. very minor discomfort to L anterior lower chest wall Resp: COMMON NORMALS: normal respiratory effort and clear to auscultation bilaterally AUSCULTATION: clear to auscultation bilaterally Cardio: COMMON NORMALS: regular rate and regular rhythm RATE: regular rate RHYTHM: regular rhythm GI: COMMON NORMALS: Normal to inspection, nondistended, normoactive bowel sounds present, Soft to palpation and non-tender PALPATION: Yes Soft to palpation Neuro: COMMON NORMALS: patient oriented x3 SENSORIUM/ORIENTATION: Yes alert Course 2 Vital Signs: Vital signs: Vital Signs Temperature 98.3 F 10/23/23 09:47 Pulse Rate 53 L 10/23/23 09:47 Respiratory Rate 14 10/23/23 09:47 Blood Pressure 125/83 10/23/23 09:47 Pulse Oximetry 99 10/23/23 09:47 Oxygen Delivery Me thod Room Air 10/23/23 09:47 MDM - Chest Pain Medical Decision Making Patient appears in no acute distress. Pain has vastly improved since onset and is minimal currently. CXR is normal. Blood work was initially ordered from triage based on his complaint of abdominal pain. This all was attempted to be cancelled. He is stable for DC. Medical Records I reviewed the patient's medical records. Lab Data 10/23/23 09:40 10/23/23 09:40 Laboratory Results WBC 5.84 10^3/uL (3.29-11.43) 10/23/23 09:40 RBC 4.90 10^6/uL (3.85-5.65) 10/23/23 09:40 Hgb 14.70 g/dL (11.27-16.99) 10/23/23 09:40 Hct 43.3 % (37-53) 10/23/23 09:40 MCV 88.4 fl (82-101) 10/23/23 09:40 MCH 30.0 pg (27-33) 10/23/23 09:40 MCHC 33.9 g/dL (30-55) 10/23/23 09:40 RDW 12.4 % (12.1-15.1) 10/23/23 09:40 Plt Count 281 10^3/cmm (157-399) 10/23/23 09:40 MPV 9.6 fL (7.4-10.4) 10/23/23 09:40 Neut % (Auto) 68.9 % 10/23/23 09:40 Lymph % (Auto) 21.7 % 10/23/23 09:40 [place] % (Auto) 4.1 % 10/23/23 09:40 Eos % (Auto) 4.5 % 10/23/23 09:40 Baso % (Auto) 0.5 % 10/23/23 09:40 Neut # (Auto) 4.02 10^3/uL (1.8-7.7) 10/23/23 09:40 Lymph # (Auto) 1.3 10^3/uL (0.8-4.8) 10/23/23 09:40 [place] # (Auto) 0.2 10^3/uL (0.2-0.9) 10/23/23 09:40 Eos # (Auto) 0.3 10^3/uL (0.0-0.8) 10/23/23 09:40 Baso # (Auto) 0.0 10^3/uL (0.0-0.1) 10/23/23 09:40 Nucleated RBC % (auto) 0 % 10/23/23 09:40 Nucleated RBCs # 0.0 /100WBC 10/23/23 09:40 Sodium 141 mmol/L (136-145) 10/23/23 09:40 Potassium 4.1 mmol/L (3.5-5.1) 10/23/23 09:40 Chloride 105 mmol/L (98-107) 10/23/23 09:40 Carbon Dioxide 28 mmol/L (22-29) 10/23/23 09:40 Anion Gap 12.1 (5-19) 10/23/23 09:40 BUN 13 mg/dL (6-20) 10/23/23 09:40 Creatinine 0.9 mg/dL (0.7-1.2) 10/23/23 09:40 GFR Calculation 94.4 mL/min (90-130) 10/23/23 09:40 Glucose 127 mg/dL (65-115) H 10/23/23 09:40 Calculated Osmolality 294 mOsm/kg (285-295) 10/23/23 09:40 Calcium 8.8 mg/dL (8.5-10.5) 10/23/23 09:40 Total Bilirubin 0.4 mg/dL (0.15-1.2) 10/23/23 09:40 AST 27 U/L (0-40) 10/23/23 09:40 ALT 27 U/L (0-41) 10/23/23 09:40 Alkaline Phosphatase 57 U/L (40-130) 10/23/23 09:40 Total Protein 6.1 g/dL (6.6-8.7) L 10/23/23 09:40 Albumin 4.0 g/dL (3.5-5.2) 10/23/23 09:40 Globulin 2.1 g/dL (1.3-4.6) 10/23/23 09:40 Lipase 36 U/L (13-60) 10/23/23 09:40 XR interpretation done by ED provider, pending radiology final review Discharge Plan Discharge Patient Disposition: Home Clinical Impression: Strain of chest wall Qualifiers: Encounter type: initial encounter Qualified Code(s): S29.011A - Strain of muscle and tendon of front wall of thorax, initial encounter Condition: Stable Prescriptions: No Action pantoprazole 40 mg tablet,delayed release (DR/EC) 40 mg PO DAILY ondansetron 4 mg tablet,disintegrating 4 mg PO Q8H PRN (Reason: nausea and vomiting) Qty: 14 0RF Discharge Orders: Discharge ED (Routine); Ordered 10/23/23 Ordered By: Camilla Barba Referrals: Zohreh Gustafson PA [Primary Care Provider] - Patient Instructions: Chest Pain - Chest Wall, Chest Wall Pain (ED) Coding Level of Care Code ED Car Rental Service Attendant for Miriam Richard
[2023-10-23 10:06] LABS: Alanine Aminotransferase 27 U/L (0-41); Alkaline Phosphatase 57 U/L (40-130); Anion Gap 12.1 (5-19); Aspartate Amino Transferase 27 U/L (0-40); Blood Urea Nitrogen 13 mg/dL (6-20); Calcium 8.8 mg/dL (8.5-10.5); Carbon Dioxide 28 mmol/L (22-29); Chloride 105 mmol/L (98-107); Globulin 2.1 g/dL (1.3-4.6); Glomerular Filtration Rate 94.4 mL/min (90-130); Glucose 127 mg/dL (65-115); Lipase 36 U/L (13-60); Osmolality Calculated 294 mOsm/kg (285-295); Potassium 4.1 mmol/L (3.5-5.1); Sodium 141 mmol/L (136-145); Total Bilirubin 0.4 mg/dL (0.15-1.2); Total Protein 6.1 g/dL (6.6-8.7)
== END 2023-10-23 10:32 | disposition home or self-care (01) ==
PROVIDERS: Emergency Provider Physician Assistant; PCP Physician Assistant
DX: S29.011A Strain of muscle and tendon of front wall of thorax, initial encounter (principal); X50.9XXA Other and unspecified overexertion or strenuous movements or postures, initial encounter
CPT/HCPCS: 36415; 71045; 80053; 83690; 85025; 99284

== ENCOUNTER 2024-01-08 17:05 | Emergency (ER) | payer BC, SELFPAY ==
[2024-01-08 17:13] VITALS: BP 160/92; PULSE 61; RESP 16; TEMP 37; O2SAT 99; BMI 31.1
[2024-01-08 17:38] VITALS: BP 139/78; RESP 18; O2SAT 99
[2024-01-08] MEDS: lidocaine 2% INJ 20 mL INJECTION (17:54)
--- NOTE | 2024-01-08 18:41 | W.ED.WOUNDLC ---
Documented by User: [email or web address] Mario 01/08/24 18:48 HPI - Wound/Laceration General: Chief Complaint: Wound/Laceration Stated Complaint: lip/chin lac Time Seen by Provider: 01/08/24 17:15 Source: patient Mode of arrival: ambulatory Limitations: no limitations History of Present Illness: Patient is a 38-year-old male presents the emergency department due to laceration suffered just prior to arrival. 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 There is no vermilion border involvement, and he was able to control the bleeding with direct pressure. He states he is up-to-date on his tetanus. He denies any other symptoms at this time. Onset (ago): minute(s) Location: face Place: home Patient tetanus UTD: Yes Context: accidental Associated symptoms: Reports no associated symptoms; Denies chills, fever(s), nausea or vomiting Review of Systems General: Reports: 10 or more systems reviewed and unremarkable except in HPI and below Const: Denies: fever(s), chills or fatigue Eyes: Denies: change in vision ENMT: Denies: throat pain, ear or mastoid pain or nasal discharge Card: Denies: chest pain, palpitations, swelling of feet/ankles or lightheadedness Resp: Denies: dyspnea, productive cough or wheezing GI: Denies: abdominal pain, nausea, vomiting, diarrhea or constipation : Denies: flank pain, difficulty urinating, dysuria or urinary frequency Musc: Denies: neck pain, back pain or joint pain Skin/Breast: Reports: new lesions (Facial laceration); Denies: rash Neuro: Denies: headache(s), numbness in extremities or weakness in extremities PFSH ED PFSH: Family History Father Heart attack History of open heart surgery Social History Smoking and tobacco/nicotine status: never used tobacco/nicotine Alcohol intake: never Substance/Drug Use: never Physical Exam Const: COMMON NORMALS: no acute distress, patient oriented x3 and no limitations GENERAL APPEARANCE: cooperative, comfortable and well developed ORIENTATION/CONSCIOUSNESS: Yes awake, Yes oriented to person, Yes oriented to place and Yes oriented to time HENMT: COMMON NORMALS: normocephalic, atraumatic, hearing grossly normal bilaterally, Normal external nose present and Normal nasal mucous membranes and turbinates present HEAD & SCALP: normocephalic and atraumatic FACE & SINUS: laceration left chin linear, involving subcutaneous tissue and with sensation intact; not actively bleeding and not contaminated Facial laceration size: 3 cm NOSE: Normal external nose present, Normal nares present, No nasal polyps present and Normal nasal mucous membranes and turbinates present MOUTH: Normal oral and palatal mucosa present, lip normal and tongue normal THROAT: posterior oropharynx normal OTHER: Laceration does not extend onto the vermilion border Eye: COMMON NORMALS: Equal, round and reactive pupils present, EOMs intact bilaterally and conjunctivae normal CONJUNCTIVA: Yes conjunctivae normal PUPIL: Yes Equal, round and reactive pupils present Neck/C-Spine: COMMON NORMALS: full ROM, supple and no JVD Resp: COMMON NORMALS: normal respiratory effort, No retractions, No use of accessory muscles and clear to auscultation bilaterally AUSCULTATION: clear to auscultation bilaterally Cardio: COMMON NORMALS: no JVD, regular rate, regular rhythm, No clicks present (Cardio), No murmurs present (Cardio) and No rub (Cardio) RATE: regular rate RHYTHM: regular rhythm Extremity: COMMON NORMALS: normal to inspection, full ROM and capillary refill normal Neuro: COMMON NORMALS: patient oriented x3, moves all extremities, no focal motor deficits and no sensory deficits noted SENSORIUM/ORIENTATION: Yes oriented to person, Yes oriented to place and Yes oriented to time Psych: COMMON NORMALS: mental status grossly normal and Normal thought process present THOUGHT PROCESS: Normal thought process present Skin: COMMON NORMALS: no rashes or lesions noted GENERAL SKIN EXAM: no rashes or lesions noted Procedures Laceration Laceration 1: Site: face Side (If applicable): left Size (cm): 3 Description: linear Depth: simple, single layer Local Anesthetic: lidocaine 2% Amount of anesthesia used (mL): 2 Pre-repair: wound explored, irrigated extensively and deep structures intact Skin layer closed with: nylon Size (cm): 5-0 Number of sutures: 4 Technique: simple, interrupted Course Vital Signs: Vital signs: Vital Signs Temperature 98.6 F 01/08/24 17:13 Pulse Rate 61 01/08/24 17:13 Respiratory Rate 18 01/08/24 17:38 Blood Pressure 139/78 01/08/24 17:38 Pulse Oximetry 99 01/08/24 17:38 Oxygen Delivery Me thod Room Air 01/08/24 17:38 MDM - Wound/Laceration Medical Decision Making Patient seen and evaluated for laceration suffered prior to arrival. Patient's tetanus status is up-to-date. Vitals normal on arrival. Examination showed a laceration to the left barroso region that was not actively bleeding and easy to approximate. I repaired this with 4 5-0 nylon sutures after irrigating it with approximately 100 mL of saline. There was no foreign body contamination and I had no reason to do any imaging. Instructed patient on hygiene as well as when to return for suture removal. Patient agrees with this plan and will be discharged home. Return precautions given such as any signs of infection. No radiology studies performed this visit Discharge Plan Discharge Patient Disposition: Home Clinical Impression: Laceration Condition: Stable Prescriptions: No Action pantoprazole 40 mg tablet,delayed release (DR/EC) 40 mg PO DAILY ondansetron 4 mg tablet,disintegrating 4 mg PO Q8H PRN (Reason: nausea and vomiting) Qty: 14 0RF Discharge Orders: Discharge ED (Routine); Ordered 01/08/24 Ordered By: Bertin Pineda Referrals: Zohreh Gustafson PA [Primary Care Provider] - Discharge Diet: Usual diet Discharge Activity: Increase activity as tolerated Patient Instructions: Care For Your Stitches (ED), Facial Laceration (ED) Activity Restrictions/Additional Instructions: Sutures out in 5-7 days. Do not soak wound for at least the first 48 hours. You may clean the wound with soap and water, but keep wound dry afterwards. Tylenol or ibuprofen for any pain. Ice for added relief. Follow-up with your primary care provider. Return with any new or concerning symptoms. Coding Level of Care Code ED Zyglo Inspector for Chg Cheled Documented by User: Vinay Castro 01/09/24 06:21 HPI - Wound/Laceration General: Chief Complaint: Wound/Laceration Stated Complaint: lip/chin lac Time Seen by Provider: 01/08/24 17:15 PFSH ED PFSH: Family History Father Heart attack History of open heart surgery Social History Smoking and tobacco/nicotine status: never used tobacco/nicotine Alcohol intake: never Substance/Drug Use: never Course Vital Signs: Vital signs: Vital Signs Temperature 98.6 F 01/08/24 17:13 Pulse Rate 61 01/08/24 17:13 Respiratory Rate 18 01/08/24 17:38 Blood Pressure 139/78 01/08/24 17:38 Pulse Oximetry 99 01/08/24 17:38 Oxygen Delivery Me thod Room Air 01/08/24 17:38 MDM - Wound/Laceration Medical Decision Making Patient seen and evaluated for laceration suffered prior to arrival. Patient's tetanus status is up-to-date. Vitals normal on arrival. Examination showed a laceration to the left barroso region that was not actively bleeding and easy to approximate. I repaired this with 4 5-0 nylon sutures after irrigating it with approximately 100 mL of saline. There was no foreign body contamination and I had no reason to do any imaging. Instructed patient on hygiene as well as when to return for suture removal. Patient agrees with this plan and will be discharged home. Return precautions given such as any signs of infection. Chart reviewed Discharge Plan Discharge Patient Disposition: Home Clinical Impression: Laceration Condition: Stable Prescriptions: No Action pantoprazole 40 mg tablet,delayed release (DR/EC) 40 mg PO DAILY ondansetron 4 mg tablet,disintegrating 4 mg PO Q8H PRN (Reason: nausea and vomiting) Qty: 14 0RF Discharge Orders: Discharge ED (Routine); Ordered 01/08/24 Ordered By: Bertin Pineda Referrals: Zohreh Gustafson PA [Primary Care Provider] - Discharge Diet: Usual diet Discharge Activity: Increase activity as tolerated Patient Instructions: Care For Your Stitches (ED), Facial Laceration (ED) Activity Restrictions/Additional Instructions: Sutures out in 5-7 days. Do not soak wound for at least the first 48 hours. You may clean the wound with soap and water, but keep wound dry afterwards. Tylenol or ibuprofen for any pain. Ice for added relief. Follow-up with your primary care provider. Return with any new or concerning symptoms. Coding Level of Care Code ED Zyglo Inspector for Miriam Richard
== END 2024-01-08 18:07 | disposition home or self-care (01) ==
PROVIDERS: Emergency Provider Physician Assistant; PCP Physician Assistant
DX: S01.81XA Laceration without foreign body of other part of head, initial encounter (principal); W29.8XXA Contact with other powered hand tools and household machinery, initial encounter
CPT/HCPCS: 12013; 99283

== ENCOUNTER 2024-02-13 07:02 | Outpatient (CLI) | payer BC, SELFPAY ==
--- NOTE | 2024-02-13 07:13 | CTR_ITS ---
PROCEDURE INFORMATION: Exam: CT Abdomen And Pelvis With Contrast Exam date and time: 02/13/2024 8:18 AM Age: 38 years old Clinical indication: Nausea and vomiting; Patient HX: Intermittent nausea with vomiting, melena, 35lb wt loss in 3-4 months; Additional info: Nausea w/vomiting/melena/abn weight loss TECHNIQUE: Imaging protocol: Computed tomography of the abdomen and pelvis with contrast. Radiation optimization: All CT scans at this facility use at least one of these dose optimization techniques: automated exposure control; mA and/or kV adjustment per patient size (includes targeted exams where dose is matched to clinical indication); or iterative reconstruction. Contrast material: OMNI 350; Contrast volume: 100 ml; Contrast route: INTRAVENOUS (IV); COMPARISON: CT abdomen pelvis w con* [id number] 08/26/2023 8:10 PM RADIATION DOSE METRICS: Total DLP (mGy-cm): 714.39 FINDINGS: Lungs: Imaged portions of the lung bases demonstrate minimal scarring and/or atelectasis. Liver: The liver contains a 0.3 cm hypodensity in the right hepatic lobe, too small to fully characterize but statistically most likely a small cyst , thought to be unchanged from 08/26/2023.. Gallbladder and bile ducts: Gallbladder is unremarkable. No extrahepatic biliary ductal dilatation for age. Pancreas: Unremarkable. Spleen: Unremarkable. Adrenal glands: Not enlarged. Kidneys and ureters: No hydronephrosis. Stable small hypodensity in the midportion of the left kidney too small to fully characterize but statistically most likely a small cyst. Stomach and bowel: There is no evidence of bowel obstruction. No bowel wall thickening is noted. No acute inflammatory change of the terminal ileum identified. Colonic diverticulosis is demonstrated, without secondary evidence of acute diverticulitis. Appendix: No acute inflammatory change of the appendix noted. Intraperitoneal space: No significant volume of free fluid identified. Vasculature: No abdominal aortic aneurysm identified. Lymph nodes: No adenopathy noted. Urinary bladder: Unremarkable as visualized. Reproductive: Unremarkable as visualized. Bones/joints: There is slight anterior wedge compression deformity of the T11 and T12 vertebral bodies which appear unchanged. Disc space narrowing also present at L4-L5. Scattered mild degenerative changes. Soft tissues: Minimal fat containing umbilical hernia. Minimal fat containing left inguinal hernia. CT/CT abdomen pelvis w con* [id number] IMPRESSION: 1. No acute appearing intra-abdominal abnormality identified. 2. Colonic diverticulosis. COMMENTS: Consistent with the [employer]'s Incidental Findings Committee white paper (J Am Prabha Radiol 2018): Any incidental renal lesion less than 1 cm or classified as too small to characterize, or any incidental cystic renal lesion characterized as simple-appearing, is likely benign. No follow-up imaging is recommended for these lesions per consensus recommendations based on imaging criteria.
[2024-02-13] MEDS: iohexol 350 mg/mL 500 mL Btl (per mL) PO (08:25)
[2024-02-13] MEDS: iohexol 350 mg/mL 500 mL Btl (per mL) IV (08:25)
== END 2024-02-13 07:03 | disposition home or self-care (01) ==
LOC: RAD 07:02
PROVIDERS: PCP Physician Assistant; Visit Provider Nurse Practitioner
DX: K92.1 Melena (principal); R11.2 Nausea with vomiting, unspecified; R63.4 Abnormal weight loss; K57.90 Diverticulosis of intestine, part unspecified, without perforation or abscess without bleeding
CPT/HCPCS: 74177; Q9967

== ENCOUNTER 2024-07-22 03:55 | Emergency (ER) | payer BC, SELFPAY ==
[2024-07-22] VITALS (7 sets, daily range): BP systolic 135–151; BP diastolic 79–89; PULSE 51–62; RESP 18; TEMP 36.6; O2SAT 96–100; BMI 30.5
--- NOTE | 2024-07-22 04:11 | CTR_ITS ---
PROCEDURE INFORMATION: Exam: CT Abdomen And Pelvis Without Contrast Exam date and time: 07/22/2024 4:39 AM Age: 39 years old Clinical indication: Abdominal pain; Localized; Right; Prior surgery; Surgery date: 1-6 months; Surgery type: Choley; Additional info: Right abd pain radiating to groin TECHNIQUE: Imaging protocol: Computed tomography of the abdomen and pelvis without contrast. Radiation optimization: All CT scans at this facility use at least one of these dose optimization techniques: automated exposure control; mA and/or kV adjustment per patient size (includes targeted exams where dose is matched to clinical indication); or iterative reconstruction. COMPARISON: CT abdomen pelvis w con* [id number] 02/13/2024 8:18 AM RADIATION DOSE METRICS: Total DLP (mGy-cm): 1013.86 FINDINGS: Liver: Normal. No mass. Gallbladder and biliary ducts: Cholecystectomy. Pancreas: Normal. No ductal dilation. Spleen: Normal. No splenomegaly. Adrenal glands: Normal. No mass. Kidneys and ureters: There is a 2 mm mildly obstructing calculus in the distal junctional 3rd of the right ureter. The 2nd a minimally obstructing calculus upper normal 2 appear. There is no renal cyst or mass. Empty urinary bladder. The wall may be thickened. Stomach and bowel: Diverticulosis without evidence of diverticulitis. Appendix: No evidence of appendicitis. Intraperitoneal space: Unremarkable. No free air. No significant fluid collection. Vasculature: Unremarkable. No abdominal aortic aneurysm. Lymph nodes: Unremarkable. No enlarged lymph nodes. Urinary bladder: No additional urinary calculi are present. Reproductive: Unremarkable as visualized. Bones/joints: Unremarkable. No acute fracture. Soft tissues: Unremarkable. CT/CT kidney stone [id number] IMPRESSION: 1. Mildly obstructing distal right ureteral calculus. There is a 2nd right calculus at the right UVJ. 2. Possible thickening of the wall of the nearly empty urinary bladder.
[2024-07-22 04:20] LABS: Basophils % 0.5 %; Eosinophils # 0.2 10^3/uL (0.0-0.8); Eosinophils % 3.8 %; Hematocrit 42.9 % (37-53); Lymphocytes # 1.9 10^3/uL (0.8-4.8); Lymphocytes % 30.5 %; Mean Corpuscular HGB Conc 33.3 g/dL (30-55); Mean Corpuscular Volume 89.9 fl (82-101); Mean Platelet Volume 9.7 fL (7.4-10.4); Monocytes # 0.4 10^3/uL (0.2-0.9); Monocytes % 5.7 %; Neutrophils # 3.75 10^3/uL (1.8-7.7); Neutrophils % 59.2 %; Nucleated Red Blood Cells % 0 %; Platelet Count 214 10^3/cmm (157-399); Red Blood Count 4.77 10^6/uL (3.85-5.65); Red Cell Distribution Width 12.6 % (12.1-15.1); White Blood Count 6.33 10^3/uL (3.29-11.43)
--- NOTE | 2024-07-22 04:31 | W.ED.ABDPA2 ---
Documented by User: Stephan Roberson DO 07/22/24 04:32 HPI - Abdominal Pain General: Chief Complaint: Abdominal Pain Stated Complaint: Right side pain Time Seen by Provider: 07/22/24 04:04 History of Present Illness: He presents to the ER with complaints of right-sided abdominal/flank pain sharp stabbing in nature started earlier this morning made him vomit it hurt so bad. About the time he arrived to the ER he was totally pain-free. Patient is never had this pain before. Patient denies any dysuria pain burning frequency diarrhea constipation. Patient has no history of kidney stones. Related Data Home Medications Medication Instructions Recorded Confirmed pantoprazole 40 mg tablet,delayed 40 mg PO DAILY 10/23/23 10/23/23 release Previous Rx's Medication Instructions Recorded ondansetron 4 mg disintegrating 4 mg PO Q8H PRN nausea and 08/26/23 tablet vomiting #14 tabs hydrocodone 5 mg-acetaminophen 325 1 tab PO Q6H PRN pain #25 tabs 07/22/24 mg tablet promethazine 25 mg tablet 25 mg PO Q6H PRN nausea and 07/22/24 vomiting #20 tabs tamsulosin 0.4 mg capsule 0.4 mg PO DAILY #14 caps 07/22/24 Allergies Allergy/AdvReac Type Severity Reaction Status Date / Time No Known Allergies Allergy Verified 07/22/24 04:06 Review of Systems General: Reports: 10 or more systems reviewed and unremarkable except in HPI and below PFSH ED PFSH: Family History Father Heart attack History of open heart surgery Social History Smoking and tobacco/nicotine status: never used tobacco/nicotine Alcohol intake: never Substance/Drug Use: never Physical Exam Const: COMMON NORMALS: no acute distress, average body habitus, patient oriented x3, no limitations, healthy appearing, alert and well nourished HENMT: COMMON NORMALS: normocephalic, atraumatic, hearing grossly normal bilaterally, external ears normal, Normal external nose present and moist oral mucous membranes HEAD & SCALP: normocephalic and atraumatic NOSE: Normal external nose present EXTERNAL EAR: Yes external ears normal Neck/C-Spine: COMMON NORMALS: no JVD Chest: COMMONS NORMALS: normal inspection of the chest and normal palpation of entire chest wall Resp: COMMON NORMALS: normal respiratory effort, No retractions, No use of accessory muscles and clear to auscultation bilaterally AUSCULTATION: clear to auscultation bilaterally Cardio: COMMON NORMALS: no JVD, regular rate, regular rhythm, S1 normal heart sound present, S2 normal heart sound present, No gallops present (Cardio), No clicks present (Cardio), No murmurs present (Cardio) and No rub (Cardio) RATE: regular rate RHYTHM: regular rhythm HEART SOUNDS: S1 normal heart sound present and S2 normal heart sound present GI: COMMON NORMALS: Normal to inspection, nondistended, normoactive bowel sounds present, Soft to palpation, non-tender, No hepatosplenomegaly present and no masses PALPATION: Yes Soft to palpation and Yes No hepatosplenomegaly present Neuro: COMMON NORMALS: patient oriented x3 SENSORIUM/ORIENTATION: Yes alert Course Vital Signs: Vital signs: Vital Signs Temperature 97.8 F 07/22/24 04:03 Pulse Rate 56 L 07/22/24 06:50 Respiratory Rate 18 07/22/24 04:03 Blood Pressure 150/79 07/22/24 06:50 Pulse Oximetry 99 07/22/24 06:50 Oxygen Delivery Me thod Room Air 07/22/24 06:30 MDM - Abdominal Pain Differential Diagnosis Likely abdominal pain Medical Records I reviewed the patient's medical records. Lab Data I reviewed the patient's lab results. 07/22/24 04:16 07/22/24 04:16 Labs/Radiology: Radiology Impressions Abdomen/Pelvis CT 07/22/24 04:11 IMPRESSION: 1. Mildly obstructing distal right ureteral calculus. There is a 2nd right calculus at the right UVJ. 2. Possible thickening of the wall of the nearly empty urinary bladder. Laboratory Results WBC 6.33 10^3/uL (3.29-11.43) 07/22/24 04:16 RBC 4.77 10^6/uL (3.85-5.65) 07/22/24 04:16 Hgb 14.30 g/dL (11.27-16.99) 07/22/24 04:16 Hct 42.9 % (37-53) 07/22/24 04:16 MCV 89.9 fl (82-101) 07/22/24 04:16 MCH 30.0 pg (27-33) 07/22/24 04:16 MCHC 33.3 g/dL (30-55) 07/22/24 04:16 RDW 12.6 % (12.1-15.1) 07/22/24 04:16 Plt Count 214 10^3/cmm (157-399) 07/22/24 04:16 MPV 9.7 fL (7.4-10.4) 07/22/24 04:16 Neut % (Auto) 59.2 % 07/22/24 04:16 Lymph % (Auto) 30.5 % 07/22/24 04:16 Ware % (Auto) 5.7 % 07/22/24 04:16 Eos % (Auto) 3.8 % 07/22/24 04:16 Baso % (Auto) 0.5 % 07/22/24 04:16 Neut # (Auto) 3.75 10^3/uL (1.8-7.7) 07/22/24 04:16 Lymph # (Auto) 1.9 10^3/uL (0.8-4.8) 07/22/24 04:16 Ware # (Auto) 0.4 10^3/uL (0.2-0.9) 07/22/24 04:16 Eos # (Auto) 0.2 10^3/uL (0.0-0.8) 07/22/24 04:16 Baso # (Auto) 0.0 10^3/uL (0.0-0.1) 07/22/24 04:16 Nucleated RBC % (auto) 0 % 07/22/24 04:16 Nucleated RBCs # 0.0 /100WBC 07/22/24 04:16 Sodium 138 mmol/L (136-145) 07/22/24 04:16 Potassium 3.8 mmol/L (3.5-5.1) 07/22/24 04:16 Chloride 104 mmol/L (98-107) 07/22/24 04:16 Carbon Dioxide 21 mmol/L (22-29) L 07/22/24 04:16 Anion Gap 16.8 (5-19) 07/22/24 04:16 BUN 22 mg/dL (6-20) H 07/22/24 04:16 Creatinine 1.0 mg/dL (0.7-1.2) 07/22/24 04:16 GFR Calculation 83.2 mL/min (90-130) L 07/22/24 04:16 Glucose 124 mg/dL (65-115) H 07/22/24 04:16 Calculated Osmolality 291 mOsm/kg (285-295) 07/22/24 04:16 Calcium 8.5 mg/dL (8.5-10.5) 07/22/24 04:16 Total Bilirubin 0.2 mg/dL (0.15-1.2) 07/22/24 04:16 AST 24 U/L (0-40) 07/22/24 04:16 ALT 31 U/L (0-41) 07/22/24 04:16 Alkaline Phosphatase 89 U/L (40-130) 07/22/24 04:16 Total Protein 6.4 g/dL (6.6-8.7) L 07/22/24 04:16 Albumin 4.0 g/dL (3.5-5.2) 07/22/24 04:16 Globulin 2.4 g/dL (1.3-4.6) 07/22/24 04:16 Urine Color Yellow (Yellow) 07/22/24 04:20 Urine Appearance Clear (CLEAR) 07/22/24 04:20 Urine pH 5.5 (5-7) 07/22/24 04:20 Ur Specific [place] 1.023 (1.005-1.030) 07/22/24 04:20 Urine Protein Negative (Negative) 07/22/24 04:20 Urine Glucose (UA) Negative (Normal) 07/22/24 04:20 Urine Ketones Negative (Negative) 07/22/24 04:20 Urine Blood 1+ (Negative) A 07/22/24 04:20 Urine Nitrate Negative (Negative) 07/22/24 04:20 Urine Bilirubin Negative (Negative) 07/22/24 04:20 Urine Urobilinogen 1.0 mg/dL (Negative) 07/22/24 04:20 Ur Leukocyte Esterase Negative (Negative) 07/22/24 04:20 Urine RBC 6-10 /hpf (0-2) 07/22/24 04:20 Urine WBC 0-5 /hpf (0-5) 07/22/24 04:20 Ur Squamous Epith Cells 0-5 /hpf (0-5) 07/22/24 04:20 Amorphous Sediment Not Reportable 07/22/24 04:20 Urine Bacteria None seen /hpf (NONE) 07/22/24 04:20 Hyaline Casts 1.65 /lpf 07/22/24 04:20 All radiology interpretation(s) finalized by discharge Discharge Plan Discharge Patient Disposition: Home Clinical Impression: Calculus of kidney Condition: Stable Prescriptions: New hydrocodone-acetaminophen 5-325 mg tablet 1 tab PO Q6H PRN (Reason: pain) Qty: 25 0RF promethazine 25 mg tablet 25 mg PO Q6H PRN (Reason: nausea and vomiting) Qty: 20 0RF tamsulosin 0.4 mg capsule 0.4 mg PO DAILY Qty: 14 0RF No Action pantoprazole 40 mg tablet,delayed release (DR/EC) 40 mg PO DAILY ondansetron 4 mg tablet,disintegrating 4 mg PO Q8H PRN (Reason: nausea and vomiting) Qty: 14 0RF Discharge Orders: Discharge ED (Routine); Ordered 07/22/24 Ordered By: Vinay Castro Referrals: Zohreh Gustafson PA [Primary Care Provider] - Discharge Diet: Usual diet Discharge Activity: Resume usual activity Patient Instructions: Kidney Stones (ED), How to Strain Your Urine (ED), Opioid Safety, Pain Management Activity Restrictions/Additional Instructions: Thank you for choosing [facility] for your healthcare needs today. It is very important that you follow up as instructed or that you return to the Emergency Department should you have concerns or if your condition changes or worsens in any way. You were seen today with flank pain CT showed you had to 2 mm kidney stones. These likely will pass spontaneously but can cause significant discomfort in the interim. You are given pain medications nausea medicines and tamsulosin which increases the time to passing the stone. Recommend that you follow-up with urology case management will make an appointment. Strain urine to collect for stone analysis. Return if pain is uncontrolled or you develop fever. Sign Out Sign Out Data: Patient Sign Out occurred on 07/22/24 at 06:11. Patient's care was discussed, and care was transferred from Stephan Roberson DO to Vinay Castro DO. Coding Level of Care Code ED Tracer Bullet Charging Machine Operator for Chg Fwd Documented by User: Vinay Castro DO 07/22/24 07:15 HPI - Abdominal Pain General: Chief Complaint: Abdominal Pain Stated Complaint: Right side pain Time Seen by Provider: 07/22/24 04:04 Related Data Home Medications Medication Instructions Recorded Confirmed pantoprazole 40 mg tablet,delayed 40 mg PO DAILY 10/23/23 10/23/23 release Previous Rx's Medication Instructions Recorded ondansetron 4 mg disintegrating 4 mg PO Q8H PRN nausea and 08/26/23 tablet vomiting #14 tabs hydrocodone 5 mg-acetaminophen 325 1 tab PO Q6H PRN pain #25 tabs 07/22/24 mg tablet promethazine 25 mg tablet 25 mg PO Q6H PRN nausea and 07/22/24 vomiting #20 tabs tamsulosin 0.4 mg capsule 0.4 mg PO DAILY #14 caps 07/22/24 Allergies Allergy/AdvReac Type Severity Reaction Status Date / Time No Known Allergies Allergy Verified 07/22/24 04:06 [facility] ED PFSH: Family History Father Heart attack History of open heart surgery Social History Smoking and tobacco/nicotine status: never used tobacco/nicotine Alcohol intake: never Substance/Drug Use: never Course Vital Signs: Vital signs: Vital Signs Temperature 97.8 F 07/22/24 04:03 Pulse Rate 56 L 07/22/24 06:50 Respiratory Rate 18 07/22/24 04:03 Blood Pressure 150/79 07/22/24 06:50 Pulse Oximetry 99 07/22/24 06:50 Oxygen Delivery Me thod Room Air 07/22/24 06:30 MDM - Abdominal Pain Medical Decision Making Care assumed at change of shift from Dr. Roberson chart reviewed no leukocytosis small amount of hematuria on micro with CT shows renal stones on the right consistent with patient's presenting history. 1 is at the UVJ 1 more proximal in both reported at 2 mm. He can be treated as an outpatient as pain is controlled at this point discharge home with hydrocodone promethazine start tamsulosin and referred to urology. Return if pain is uncontrolled develops fever. Reviewed with patient's. Lab Data 07/22/24 04:16 07/22/24 04:16 Labs/Radiology: Radiology Impressions Abdomen/Pelvis CT 07/22/24 04:11 IMPRESSION: 1. Mildly obstructing distal right ureteral calculus. There is a 2nd right calculus at the right UVJ. 2. Possible thickening of the wall of the nearly empty urinary bladder. Laboratory Results WBC 6.33 10^3/uL (3.29-11.43) 07/22/24 04:16 RBC 4.77 10^6/uL (3.85-5.65) 07/22/24 04:16 Hgb 14.30 g/dL (11.27-16.99) 07/22/24 04:16 Hct 42.9 % (37-53) 07/22/24 04:16 MCV 89.9 fl (82-101) 07/22/24 04:16 MCH 30.0 pg (27-33) 07/22/24 04:16 MCHC 33.3 g/dL (30-55) 07/22/24 04:16 RDW 12.6 % (12.1-15.1) 07/22/24 04:16 Plt Count 214 10^3/cmm (157-399) 07/22/24 04:16 MPV 9.7 fL (7.4-10.4) 07/22/24 04:16 Neut % (Auto) 59.2 % 07/22/24 04:16 Lymph % (Auto) 30.5 % 07/22/24 04:16 Ware % (Auto) 5.7 % 07/22/24 04:16 Eos % (Auto) 3.8 % 07/22/24 04:16 Baso % (Auto) 0.5 % 07/22/24 04:16 Neut # (Auto) 3.75 10^3/uL (1.8-7.7) 07/22/24 04:16 Lymph # (Auto) 1.9 10^3/uL (0.8-4.8) 07/22/24 04:16 Ware # (Auto) 0.4 10^3/uL (0.2-0.9) 07/22/24 04:16 Eos # (Auto) 0.2 10^3/uL (0.0-0.8) 07/22/24 04:16 Baso # (Auto) 0.0 10^3/uL (0.0-0.1) 07/22/24 04:16 Nucleated RBC % (auto) 0 % 07/22/24 04:16 Nucleated RBCs # 0.0 /100WBC 07/22/24 04:16 Sodium 138 mmol/L (136-145) 07/22/24 04:16 Potassium 3.8 mmol/L (3.5-5.1) 07/22/24 04:16 Chloride 104 mmol/L (98-107) 07/22/24 04:16 Carbon Dioxide 21 mmol/L (22-29) L 07/22/24 04:16 Anion Gap 16.8 (5-19) 07/22/24 04:16 BUN 22 mg/dL (6-20) H 07/22/24 04:16 Creatinine 1.0 mg/dL (0.7-1.2) 07/22/24 04:16 GFR Calculation 83.2 mL/min (90-130) L 07/22/24 04:16 Glucose 124 mg/dL (65-115) H 07/22/24 04:16 Calculated Osmolality 291 mOsm/kg (285-295) 07/22/24 04:16 Calcium 8.5 mg/dL (8.5-10.5) 07/22/24 04:16 Total Bilirubin 0.2 mg/dL (0.15-1.2) 07/22/24 04:16 AST 24 U/L (0-40) 07/22/24 04:16 ALT 31 U/L (0-41) 07/22/24 04:16 Alkaline Phosphatase 89 U/L (40-130) 07/22/24 04:16 Total Protein 6.4 g/dL (6.6-8.7) L 07/22/24 04:16 Albumin 4.0 g/dL (3.5-5.2) 07/22/24 04:16 Globulin 2.4 g/dL (1.3-4.6) 07/22/24 04:16 Urine Color Yellow (Yellow) 07/22/24 04:20 Urine Appearance Clear (CLEAR) 07/22/24 04:20 Urine pH 5.5 (5-7) 07/22/24 04:20 Ur Specific [place] 1.023 (1.005-1.030) 07/22/24 04:20 Urine Protein Negative (Negative) 07/22/24 04:20 Urine Glucose (UA) Negative (Normal) 07/22/24 04:20 Urine Ketones Negative (Negative) 07/22/24 04:20 Urine Blood 1+ (Negative) A 07/22/24 04:20 Urine Nitrate Negative (Negative) 07/22/24 04:20 Urine Bilirubin Negative (Negative) 07/22/24 04:20 Urine Urobilinogen 1.0 mg/dL (Negative) 07/22/24 04:20 Ur Leukocyte Esterase Negative (Negative) 07/22/24 04:20 Urine RBC 6-10 /hpf (0-2) 07/22/24 04:20 Urine WBC 0-5 /hpf (0-5) 07/22/24 04:20 Ur Squamous Epith Cells 0-5 /hpf (0-5) 07/22/24 04:20 Amorphous Sediment Not Reportable 07/22/24 04:20 Urine Bacteria None seen /hpf (NONE) 07/22/24 04:20 Hyaline Casts 1.65 /lpf 07/22/24 04:20 Discharge Plan Discharge Patient Disposition: Home Clinical Impression: Calculus of kidney Condition: Stable Prescriptions: New hydrocodone-acetaminophen 5-325 mg tablet 1 tab PO Q6H PRN (Reason: pain) Qty: 25 0RF promethazine 25 mg tablet 25 mg PO Q6H PRN (Reason: nausea and vomiting) Qty: 20 0RF tamsulosin 0.4 mg capsule 0.4 mg PO DAILY Qty: 14 0RF No Action pantoprazole 40 mg tablet,delayed release (DR/EC) 40 mg PO DAILY ondansetron 4 mg tablet,disintegrating 4 mg PO Q8H PRN (Reason: nausea and vomiting) Qty: 14 0RF Discharge Orders: Discharge ED (Routine); Ordered 07/22/24 Ordered By: Vinay Castro Referrals: Zohreh Gustafson PA [Primary Care Provider] - Discharge Diet: Usual diet Discharge Activity: Resume usual activity Patient Instructions: Kidney Stones (ED), How to Strain Your Urine (ED), Opioid Safety, Pain Management Activity Restrictions/Additional Instructions: Thank you for choosing [facility] for your healthcare needs today. It is very important that you follow up as instructed or that you return to the Emergency Department should you have concerns or if your condition changes or worsens in any way. You were seen today with flank pain CT showed you had to 2 mm kidney stones. These likely will pass spontaneously but can cause significant discomfort in the interim. You are given pain medications nausea medicines and tamsulosin which increases the time to passing the stone. Recommend that you follow-up with urology case management will make an appointment. Strain urine to collect for stone analysis. Return if pain is uncontrolled or you develop fever. Sign Out Sign Out Data: Patient Sign Out occurred on 07/22/24 at 06:11. Patient's care was discussed, and care was transferred from Stephan Roberson DO to Vinay Castro DO. Coding Level of Care Code ED Tracer Bullet Charging Machine Operator for Miriam Richard
[2024-07-22 04:42] LABS: Alanine Aminotransferase 31 U/L (0-41); Alkaline Phosphatase 89 U/L (40-130); Aspartate Amino Transferase 24 U/L (0-40); Blood Urea Nitrogen 22 mg/dL (6-20); Calcium 8.5 mg/dL (8.5-10.5); Carbon Dioxide 21 mmol/L (22-29); Chloride 104 mmol/L (98-107); Creatinine Clr Calc Pharmacy 122.5792; Globulin 2.4 g/dL (1.3-4.6); Glomerular Filtration Rate 83.2 mL/min (90-130); Glucose 124 mg/dL (65-115); Osmolality Calculated 291 mOsm/kg (285-295); Sodium 138 mmol/L (136-145); Total Bilirubin 0.2 mg/dL (0.15-1.2); Total Protein 6.4 g/dL (6.6-8.7)
[2024-07-22 04:43] LABS: Anion Gap 16.8 (5-19); Potassium 3.8 mmol/L (3.5-5.1)
[2024-07-22 04:59] LABS: Bilirubin Urine Negative (Negative); Blood Urine 1+ (Negative); Glucose Urine UA Negative (Normal); Ketones Urine Negative (Negative); Leukocyte Esterase Urine Negative (Negative); Nitrate Urine Negative (Negative); Protein Urine Negative (Negative); Specific Gravity, Urine 1.023 (1.005-1.030); Urine Appearance Clear (CLEAR); Urine Color Yellow (Yellow); pH Urine 5.5 (5-7)
[2024-07-22 05:04] LABS: Add Urine Microscopic? YES; Bacteria Urine None Seen /hpf; Hyaline Casts Urine 1.65 /lpf; Squamous Epithelial Cell Urine 0-5 /hpf (0-5); WBC Urine 0-5 /hpf (0-5)
--- NOTE | 2024-07-24 08:55 | DCPLANNER ---
faxed referral packet to [facility] urology
== END 2024-07-22 06:53 | disposition home or self-care (01) ==
PROVIDERS: Emergency Medicine; Emergency Provider Family Medicine; PCP Physician Assistant
DX: N20.0 Calculus of kidney (principal)
CPT/HCPCS: 74176; 80053; 81001; 85025; 99284

== ENCOUNTER 2024-09-16 21:29 | Emergency (ER) | payer BC, SELFPAY ==
[2024-09-16 21:31] VITALS: BP 148/83; PULSE 73; RESP 16; TEMP 36.6; O2SAT 98
--- NOTE | 2024-09-16 21:33 | XRR_ITS ---
PROCEDURE INFORMATION: Exam: XR Right Knee Exam date and time: 09/16/2024 9:37 PM Age: 39 years old Clinical indication: Injury or trauma; Fall; Blunt trauma; Knee; Right TECHNIQUE: Imaging protocol: Radiologic exam of the right knee. Views: 3 views. COMPARISON: No relevant prior studies available. FINDINGS: Bones/joints: Normal. Soft tissues: Normal. XR/XR knee RT 3V* [id number] IMPRESSION: No acute findings.
[2024-09-16 21:35] VITALS: BP 128/102; PULSE 62; O2SAT 95
--- NOTE | 2024-09-16 21:44 | W.ED.EXTPRO ---
HPI - Extremity Problem General: Chief complaint: Extremity Injury, Lower Stated complaint: right knee injury Time Seen by Provider: 09/16/24 21:34 Source: patient Mode of arrival: ambulatory Limitations: no limitations History of Present Illness: 39-year-old male states he was running and tripped and landed on his right knee on the ground states he hit a rock with his right knee has been having pain in his right kneecap. States he has minimal pain at rest but is worse when he tries to ambulate. He denies feeling any pop or twisting. Denies any other injuries Associated symptoms: Deny chest pain, fever(s) or rash Related Data Home Medications Medication Instructions Recorded Confirmed pantoprazole 40 mg tablet,delayed 40 mg PO DAILY 10/23/23 10/23/23 release Previous Rx's Medication Instructions Recorded ondansetron 4 mg disintegrating 4 mg PO Q8H PRN nausea and 08/26/23 tablet vomiting #14 tabs hydrocodone 5 mg-acetaminophen 325 1 tab PO Q6H PRN pain #25 tabs 07/22/24 mg tablet promethazine 25 mg tablet 25 mg PO Q6H PRN nausea and 07/22/24 vomiting #20 tabs tamsulosin 0.4 mg capsule 0.4 mg PO DAILY #14 caps 07/22/24 Allergies Allergy/AdvReac Type Severity Reaction Status Date / Time No Known Allergies Allergy Verified 09/16/24 21:35 Review of Systems Const: Denies: fever(s), chills or body aches ENMT: Denies: throat pain Card: Denies: chest pain Resp: Denies: dyspnea GI: Denies: abdominal pain, nausea or vomiting Musc: Reports: extremity pain; Denies: neck pain or back pain Skin/Breast: Denies: rash Neuro: Denies: headache(s) PFSH ED PFSH: Family History Father Heart attack History of open heart surgery Social History Smoking and tobacco/nicotine status: never used tobacco/nicotine Alcohol intake: never Substance/Drug Use: never Physical Exam Const: COMMON NORMALS: no acute distress, patient oriented x3 and healthy appearing HENMT: COMMON NORMALS: normocephalic and atraumatic HEAD & SCALP: normocephalic and atraumatic Eye: COMMON NORMALS: conjunctivae normal CONJUNCTIVA: Yes conjunctivae normal Neck/C-Spine: COMMON NORMALS: full ROM and supple Chest: COMMONS NORMALS: normal inspection of the chest Resp: COMMON NORMALS: normal respiratory effort Cardio: COMMON NORMALS: regular rate RATE: regular rate Extremity: NARRATIVE EXTREMITY EXAM: Tenderness over right patella no obvious swelling he has full range of motion Neuro: COMMON NORMALS: patient oriented x3, moves all extremities and no focal motor deficits Psych: COMMON NORMALS: mental status grossly normal, Normal thought process present and cooperative THOUGHT PROCESS: Normal thought process present Skin: COMMON NORMALS: no rashes or lesions noted and no wounds GENERAL SKIN EXAM: no rashes or lesions noted Course Vital Signs: Vital signs: Vital Signs Temperature 98 F 09/16/24 21:31 Pulse Rate 62 09/16/24 21:35 Respiratory Rate 16 09/16/24 21:31 Blood Pressure 128/102 09/16/24 21:35 Pulse Oximetry 95 09/16/24 21:35 Oxygen Delivery Me thod Room Air 09/16/24 21:35 MDM - Extremity (Nontraumatic) Medical Decision Making Patient presents with pain over his patella after a fall is likely contusion do not see any signs of patellar fracture on x-ray he is weight-bear as tolerated we will get place him on crutches he is follow-up with Ortho return if worsening he understands agrees to plan Medical Records I reviewed the patient's medical records. XR interpretation done by ED provider, pending radiology final review ED provider radiology interpretation(s): X-ray right knee no acute fracture noted Discharge Plan Discharge Patient Disposition: Home Clinical Impression: Injury of knee, right Qualifiers: Encounter type: initial encounter Qualified Code(s): S89.91XA - Unspecified injury of right lower leg, initial encounter Condition: Stable Prescriptions: No Action pantoprazole 40 mg tablet,delayed release (DR/EC) 40 mg PO DAILY hydrocodone-acetaminophen 5-325 mg tablet 1 tab PO Q6H PRN (Reason: pain) Qty: 25 0RF promethazine 25 mg tablet 25 mg PO Q6H PRN (Reason: nausea and vomiting) Qty: 20 0RF tamsulosin 0.4 mg capsule 0.4 mg PO DAILY Qty: 14 0RF ondansetron 4 mg tablet,disintegrating 4 mg PO Q8H PRN (Reason: nausea and vomiting) Qty: 14 0RF Discharge Orders: Discharge ED (Routine); Ordered 09/16/24 Ordered By: Rell Smith Referrals: Quentin Ervin DO [Physician] - 4-7 days Zohreh Gustafson PA [Primary Care Provider] - Discharge Diet: Advance as tolerated Discharge Activity: Increase activity as tolerated and Limit activity as instructed Patient Instructions: Contusion in Adults (ED), Knee Pain (ED) Coding Level of Care Code ED Information Resource Consultant for Miriam Richard
[2024-09-16] MEDS: HYDROcodone-acetaminophen 5-325 mg Tablet 1 TAB PO (21:47)
[2024-09-16 22:17] VITALS: BP 121/77; PULSE 67; O2SAT 93
== END 2024-09-16 22:20 | disposition home or self-care (01) ==
PROVIDERS: Emergency Provider Emergency Medicine; PCP Physician Assistant
DX: M25.561 Pain in right knee (principal)
CPT/HCPCS: 73562; 99283

== ENCOUNTER 2025-02-26 21:21 | Emergency (ER) | payer BC, SELFPAY ==
[2025-02-26 21:41] VITALS: BP 131/53; PULSE 67; RESP 16; TEMP 36.5; O2SAT 99; BMI 33.2
== END 2025-02-26 23:53 | disposition left against medical advice (07) ==
PROVIDERS: Emergency Provider Family Medicine; PCP Physician Assistant
DX: Z53.21 Procedure and treatment not carried out due to patient leaving prior to being seen by health care provider (principal)